=== PATIENT | male | born 1990 | race Caucasian/White ===

== ENCOUNTER 2020-05-26 08:51 | Emergency (ER) | payer OTHER, SELFPAY ==
[2020-05-26 08:55] VITALS: BP 139/72; PULSE 88; RESP 18; TEMP 36.1; O2SAT 100; BMI 25.0
[2020-05-26 09:00] VITALS: O2SAT 100
--- NOTE | 2020-05-26 09:21 | ED.GENADULT ---
HPI - General Adult General Chief complaint: Nausea/Vomiting/Diarrhea Stated complaint: covid testing Time Seen by Provider: 05/26/20 09:02 Source: patient Mode of arrival: ambulatory Limitations: no limitations History of Present Illness HPI narrative: 29 y/o male presenting with acute onset of N/V, body aches, chills and subjective fever that started this morning. He took Motrin for his subjective fever and is starting to feel better. He continues to seen nauseated. No cough, SOB, chest pain, abd pain. Works at a [employer] store. No known exposure to COVID-19. MD complaint: flu-like symptoms Onset (ago): hour(s) (2) Location: back Radiation: non-radiation Severity: moderate Quality: aching Pain Consistency: constant Relieving factors: medication Exacerbating factors: none Associated symptoms: fever/chills, loss of appetite, malaise and nausea/vomiting Treatments prior to arrival: NSAID Related Data Previous Rx's Medication Instructions Recorded ondansetron HCl [Zofran] 4 mg PO Q8H PRN #10 tab 05/26/20 Allergies Allergy/AdvReac Type Severity Reaction Status Date / Time No Known Allergies Allergy Unverified 02/22/20 16:09 [No Known Allergies*] cats and dogs Allergy Unknown Uncoded 07/17/11 00:00 seasonal Allergy Unknown Uncoded 07/17/11 00:00 Review of Systems Review of Systems: Constitutional: + Fever, + Chills ENT/Mouth: No sore throat, No Rhinorrhea, No Swallowing Difficulty Eyes: No Eye Pain, No Swelling, No Redness Cardiovascular: No Chest Pain, No SOB, No Orthopnea, No Edema Respiratory: No Cough, No Sputum, No Wheezing, No dyspnea Gastrointestinal: + Nausea, + Vomiting, No Diarrhea, No abdominal Pain, No Hematochezia, No Melena Genitourinary: No Dysuria, No Urinary Frequency, No Hematuria Musculoskeletal: No joint pain, + Myalgias Skin: No Skin Lesions, No rash Neuro: + Weakness, No Numbness, No Dizziness, + Headache Psych: No Anxiety/Panic, No Depression Heme/Lymph: No Bruising, No Lymphadenopathy PMFSH Past Medical History Medical History (Updated 05/26/20 @ 09:26 by BROOK Castle) Asthma Social History Social History Alcohol intake: never Smoking Status: Never smoker Use of substances other than those prescribed or required for medical reasons: No Advance Directives: No Advance Directives Information Provided: Yes Physical Exam Vital Signs: Vital Signs: Last Vital Signs Temp 97.0 F 05/26/20 08:55 Pulse 88 05/26/20 08:55 Resp 18 05/26/20 08:55 BP 139/72 05/26/20 08:55 Pulse Ox 100 05/26/20 09:00 Body Mass Index 25.0 Appearance: Alert. Oriented X3. No acute distress. Eyes: Pupils equal, round and reactive to light. ENT: Pharynx normal. Neck: Normal inspection. Neck supple. CVS: Normal heart rate and rhythm. Pulses normal. Respiratory: No respiratory distress. Breath sounds normal. Abdomen: Soft and nontender. +BS x4 Skin: Skin warm and dry. Normal skin color. Normal skin turgor. No rashes. Extremities: No lower extremity edema. Neuro: Oriented X 3. No motor deficit. No sensory deficit. Course Course Course Narrative: 29 y/o male presenting with flu like symptoms that started this morning. Works in [employer]. Will test for COVID, Flu and RSV. Patient counseled. Stable for d/c. Medical Decision Making Lab Data Labs: Lab Results 05/26/20 Range/Units 09:18 Coronavirus (PCR) NEGATIVE (Negative) Influenza Type A (PCR) NEGATIVE (Negative) Influenza Type B (PCR) NEGATIVE (Negative) RSV RNA Qual (PCR) NEGATIVE (Negative) Critical Care Time Critical Care Time Critical Care Time: No Discharge Plan Discharge Clinical Impression: Acute viral syndrome Patient Disposition: Home, Self-Care Instructions: Acute Nausea and Vomiting (ED), COVID-19 (Coronavirus Disease 2019) (ED) Additional Instructions: You were tested for COVID-19, Influenza and RSV today. We will call you with the results later today. Continue to take Tylenol and/or Motrin as needed for body aches, fevers. Rest. Stay hydrated. Do not work while you are feeling unwell. Follow up with your doctor this week. If you develop shortness of breath, chest pain, difficulty breathing, abdominal pain, persistent nausea and vomiting and unable to tolerate anything by mouth, come back to the ER for further evaluation. Prescriptions: New ondansetron HCl [Zofran] 4 mg tablet 4 mg PO Q8H PRN (Reason: nausea and vomiting) Qty: 10 RF: 0 Stand Alone Forms: Work/School Release Interventions: ED Discharge Assessment Last Done: 05/26/20 10:02 Discharge Date/Time: 05/26/20 10:03
--- NOTE | 2020-05-26 09:30 | PC.NURSE ---
Patient arrives complaining of nausea/vomiting/bodyaches. Patient is well appearing with regular, even, and nonlabored respirations. Skin PWD. Vitals WNL. Patient swabbed for respiratory panel. Plan for discharge and will call with results.
[2020-05-26 10:06] LABS: Influenza A PCR NEGATIVE (Negative); Influenza B PCR NEGATIVE (Negative); Resp Syncy Virus RNA Qual PCR NEGATIVE (Negative); SARS COV2 PCR INHOUSE NEGATIVE (Negative)
== END 2020-05-26 10:03 | disposition home or self-care (01) ==
PROVIDERS: Physician Assistant; Emergency Provider Emergency Medicine; PCP Physician Assistant
DX: B34.9 Viral infection, unspecified (principal); Z20.828 Contact with and (suspected) exposure to other viral communicable diseases; J45.909 Unspecified asthma, uncomplicated
CPT/HCPCS: 0241U; 99284

== ENCOUNTER 2021-11-04 14:31 | Emergency (ER) | payer OTHER, SELFPAY ==
--- NOTE | ~2021-11-04 | XR_ITS ---
EXAMINATION: XR HAND, RIGHT CLINICAL INFORMATION: Crush injury 3rd-5th digits COMPARISON: None TECHNIQUE: PA, lateral, and oblique views of the right hand. FINDINGS: The bones and soft tissues are normal. No fracture. Alignment is anatomic. Joint spaces are maintained. No erosions or soft tissue calcifications. XR/XR hand RT min 3V IMPRESSION: Normal right hand.
[2021-11-04 16:26] VITALS: BP 128/81; PULSE 80; RESP 18; TEMP 36.4; O2SAT 100; BMI 25.0
--- NOTE | 2021-11-04 16:40 | ED_ITS ---
HPI - Extremity Problem General Chief complaint: Extremity Injury, Upper <BROOK Tavera Last Filed: 11/04/21 18:29> Stated complaint: wri middle finger injury <BROOK Tavera Last Filed: 11/04/21 18:29> Time Seen by Provider: 11/04/21 16:39 <BROOK Tavera Last Filed: 11/04/21 18:29> Source: patient <BROOK Tavera Last Filed: 11/04/21 18:29> Mode of arrival: ambulatory <BROOK Tavera Last Filed: 11/04/21 18:29> History of Present Illness HPI Narrative: 31-year-old male with a past medical history of asthma presenting to the ED complaining of crush injury to right 3rd and 4th digits s/p carrying heavy post at work today around 12pm. States post required 5 adult males to carry, someone dropped too early in finger got crushed between post and wood peg. Reports mild tingling. Denies fever, chills, numbness <BROOK Tavera Last Filed: 11/04/21 18:29> MD Complaint: extremity pain and extremity swelling <BROOK Tavera Last Filed: 11/04/21 18:29> Related Data Home medications: Previous Rx's Medication Instructions Recorded ondansetron HCl 4 mg tablet 4 mg PO Q8H PRN #10 tab 05/26/20 (Zofran) montelukast 10 mg tablet 10 mg PO DAILY #30 tab 10/05/20 <BROOK Tavera Last Filed: 11/04/21 18:29> Allergies/Adverse reactions: Allergies Allergy/AdvReac Type Severity Reaction Status Date / Time No Known Allergies Allergy Verified 11/04/21 16:26 [No Known Allergies*] cats and dogs Allergy Unknown Itchy Eyes Uncoded 11/04/21 16:26 seasonal Allergy Unknown Itchy Eyes Uncoded 11/04/21 16:26 <BROOK Tavera Last Filed: 11/04/21 18:29> Review of Systems Review of Systems: Constitutional: No Fever, No Chills ENT/Mouth: No Ear Pain, No Nasal Congestion, No sore throat, No Rhinorrhea, No Swallowing Difficulty Cardiovascular: No Chest Pain, No SOB Respiratory: No Cough, No Sputum, No Wheezing Gastrointestinal: No Nausea, No Vomiting, No Diarrhea, No Constipation, No Abdominal pain Genitourinary: No Dysuria, No Flank Pain Musculoskeletal: + joint pain, No Myalgias, + Joint Swelling Skin: No Skin Lesions, No rash Neuro: No Weakness, No Numbness, + Paresthesias <BROOK Tavera Last Filed: 11/04/21 18:29> Yes all other systems are reviewed and are negative <BROOK Tavera - Last Filed: 11/04/21 18:29> [facility] Past Medical History Attestation statement: The following information was validated with the patient. <BROOK Tavera Last Filed: 11/04/21 18:29> Medical History: Medical History Asthma <BROOK Tavera Last Filed: 11/04/21 18:29> Social History Social History: Social History Alcohol intake: never Advance Directives: No Advance Directives Information Provided: No <BROOK Tavera Last Filed: 11/04/21 18:29> Physical Exam Vital Signs: Vital Signs: Last Vital Signs Temp 97.5 F 11/04/21 16:26 Pulse 80 11/04/21 16:26 Resp 18 11/04/21 16:26 BP 128/81 11/04/21 16:26 Pulse Ox 100 11/04/21 16:26 BMI result Body Mass Index 25.0 <BROOK Tavera Last Filed: 11/04/21 18:29> Const: General: cooperative, healthy appearing and no acute distress <BROOK Tavera Last Filed: 11/04/21 18:29> Orientation/consciousness: patient oriented x3 <BROOK Tavera Last Filed: 11/04/21 18:29> Limitations: no limitations <BROOK Tavera Last Filed: 11/04/21 18:29> HEENT: Head: Yes normal to inspection and Yes atraumatic <BROOK Tavera Last Filed: 11/04/21 18:29> Ears: hearing grossly normal bilaterally <Carla Poulmaryannt PA - Last Filed: 11/04/21 18:29> General nose exam: Normal external nose present <Carla Lambertmaryannt PA - Last Filed: 11/04/21 18:29> Face and sinus: Yes normal facial exam <Carla Lambertmaryannt PA - Last Filed: 11/04/21 18:29> Eyes: General: appearance normal, both eyes and all related structures <Carla Poulmaryannt, PA - Last Filed: 11/04/21 18:29> EOM: EOMs intact bilaterally <Carla Poulmaryannt, PA - Last Filed: 11/04/21 18:29> Neck: Neck: Yes normal visual inspection and Yes no meningeal signs <Carla Lambertmaryannt, PA - Last Filed: 11/04/21 18:29> Resp: Effort & Inspection: normal respiratory effort and no respiratory distress <Carla Lambertmaryannt PA - Last Filed: 11/04/21 18:29> Cardio: Rate: regular rate <Carla Lambertmaryannt, PA - Last Filed: 11/04/21 18:29> Peripheral pulses: radial pulses present and ulnar radial pulses present <Carla Lambertmaryannt PA - Last Filed: 11/04/21 18:29> Skin: Rashes: no rashes <Carla Lambertmaryannt PA - Last Filed: 11/04/21 18:29> Wounds: no wounds <Carla Lambertmaryannt PA - Last Filed: 11/04/21 18:29> Neuro: General: patient oriented x3, gait normal, tone normal, moves all extremities, no meningeal signs and no focal motor deficits <Carla Lambertmaryannt PA - Last Filed: 11/04/21 18:29> Gait exam (Neuro): Normal gait present <Caral Poulmaryannt PA - Last Filed: 11/04/21 18:29> Motor exam (neuro): 5/5 motor strength present throughout <Carla Poulmaryannt PA - Last Filed: 11/04/21 18:29> Extrem: Other: Right 3rd digit with mild swelling greatest to distal aspect with ecchymosis noted to pulp. +ttp 4th digit with mild ttp. No appreciable deformity. No erythema, crepitus. Sensation intact to light touch to all digits. Neurovascularly intact. Ddvovo-yq-sgiat opposition intact. FROM intact <BROOK Tavera - Last Filed: 11/04/21 18:29> Course Course Course Narrative: XR hand RT min 3V IMPRESSION: Normal right hand. Results discussed with patient including worrisome signs and symptoms and strict return precautions <BROOK Tavera Last Filed: 11/04/21 18:29> MDM - Extremity (Nontraumatic) MDM Narrative Medical decision making narrative: 31-year-old male with a past medical history of asthma presenting to the ED complaining of crush injury to right 3rd and 4th digits s/p carrying heavy post at work today around 12pm. On exam vital signs stable, in ED/nontoxic, ph ysical exam as above. Concern for crush injury/fracture vs sprain. Plan: XR's <BROOK Tavera Last Filed: 11/04/21 18:29> Medical Records Attestation: I reviewed the patient's medical records. <BROOK Tavera Last Filed: 11/04/21 18:29> Lab Data Attestation: I reviewed the patient's lab results. <BROOK Tavera Last Filed: 11/04/21 18:29> Discharge Plan Discharge Clinical Impression: Finger sprain <BROOK Tavera Last Filed: 11/04/21 18:29> Patient Disposition: Home, Self-Care <BROOK Tavera Last Filed: 11/04/21 18:29> Instructions: Crush Injury (ED) <BROOK Tavera Last Filed: 11/04/21 18:29> Additional Instructions: Your x-rays are unremarkable. Ice and elevate your hand. Take Tylenol and Motrin as needed for pain/swelling Follow-up with [facility]. If symptoms persist or worsen, pain becomes unbearable return to any emergency department or call 911 <BROOK Tavera Last Filed: 11/04/21 18:29> Prescriptions: No Action montelukast 10 mg tablet 10 mg PO DAILY Qty: 30 4RF ondansetron HCl [Zofran] 4 mg tablet 4 mg PO Q8H PRN (Reason: nausea and vomiting) Qty: 10 0RF <BROOK Tavera - Last Filed: 11/04/21 18:29> Referrals: [facility] [Outside] <BROOK Tavera - Last Filed: 11/04/21 18:29> Stand Alone Forms: Work/School Release <BROOK Tavera - Last Filed: 11/04/21 18:29> Interventions: ED Discharge Assessment Last Done: 11/04/21 18:48 <BROOK Tavera - Last Filed: 11/04/21 18:29> Discharge Date/Time: 11/04/21 18:49 <BROOK Tavera - Last Filed: 11/04/21 18:29>
== END 2021-11-04 18:49 | disposition home or self-care (01) ==
PROVIDERS: Emergency Provider Emergency Medicine; PCP Physician Assistant
DX: S63.612A Unspecified sprain of right middle finger, initial encounter (principal); S63.614A Unspecified sprain of right ring finger, initial encounter; W23.1XXA Caught, crushed, jammed, or pinched between stationary objects, initial encounter; Y93.89 Activity, other specified; Y92.512 Supermarket, store or market as the place of occurrence of the external cause; Y99.0 Civilian activity done for income or pay
CPT/HCPCS: 73130; 99283

== ENCOUNTER → 2021-11-06 12:46 | Outpatient (BNVA) | payer OTHER, SELFPAY | PROVIDERS: PCP Physician Assistant; Visit Provider Physician Assistant | DX: S62.602A Fracture of unspecified phalanx of right middle finger, initial encounter for closed fracture (principal); W23.0XXA Caught, crushed, jammed, or pinched between moving objects, initial encounter | CPT/HCPCS: 29130; 99203 ==

== ENCOUNTER → 2021-12-04 13:14 | Outpatient (BNVA) | payer OTHER, SELFPAY | PROVIDERS: PCP Physician Assistant; Visit Provider Physician Assistant Medical | DX: S62.602D Fracture of unspecified phalanx of right middle finger, subsequent encounter for fracture with routine healing (principal); W23.0XXD Caught, crushed, jammed, or pinched between moving objects, subsequent encounter | CPT/HCPCS: 99213 ==

== ENCOUNTER 2023-09-15 09:49 | Outpatient (REF) | payer MEDICAID, SELFPAY ==
--- NOTE | ~2023-09-15 | XR_ITS ---
EXAMINATION: XR lumbar spine 2-3V CLINICAL INFORMATION: Reason for Exam PAIN COMPARISON: None TECHNIQUE: 3 views of the lumbar spine FINDINGS: 5 nonrib-bearing lumbar-type vertebral bodies. Vertebral body heights are maintained. Alignment is maintained. Minimal degenerative change and small anterior disc osteophyte complexes. Disc space heights are maintained. Paravertebral soft tissues are unremarkable. XR/XR lumbar spine 2-3V IMPRESSION: Mild spondylosis of the lumbar spine, as above detailed.
== END 2023-09-15 09:50 | disposition home or self-care (01) ==
LOC: HO.HHCX 09:49
PROVIDERS: Visit Provider Nurse Practitioner Family
DX: M54.50 Low back pain, unspecified (principal); G89.29 Other chronic pain
CPT/HCPCS: 72100

== ENCOUNTER 2023-09-15 10:14 | Outpatient (REF) | payer MEDICAID, SELFPAY ==
[2023-09-15 12:21] LABS: Anion Gap 12 (12-20); Blood Urea Nitrogen 19 mg/dL (9-16); C Reactive Protein 0.21 mg/dL (< or = 0.50); Calcium 9.1 mg/dL (8.4-10.2); Carbon Dioxide 27 mmol/L (22-29); Chloride 105 mmol/L (96-108); Cholesterol 150 mg/dL (<200); Estimated Glomerular Filt Rate > 60; Glucose Random 89 mg/dL (60-115); HDL Cholesterol 42 mg/dL (>40); LDL Cholesterol Calculated 93 mg/dL (<100); Potassium 3.8 mmol/L (3.3-5.1); Sodium 140 mmol/L (135-145); Triglycerides 78 mg/dL (<150)
[2023-09-15 12:57] LABS: Erythrocyte Sedimentation Rate 3 MM/HR (0-15)
== END 2023-09-15 10:15 | disposition home or self-care (01) ==
LOC: HO.HHCLNP 10:14
PROVIDERS: Visit Provider Nurse Practitioner Family
DX: Z13.6 Encounter for screening for cardiovascular disorders (principal)
CPT/HCPCS: 36415; 72100; 80048; 80061; 85652; 86140

== ENCOUNTER 2025-01-23 12:10 | Outpatient (REF) | payer OTHER, SELFPAY ==
[2025-01-24 11:39] LABS: Chlamydia pneumoniae PCR Not Detected (Not Detect.); Coronavirus 229E PCR Not Detected (Not Detect.); Coronavirus HKU1 PCR Not Detected (Not Detect.); Coronavirus NL63 PCR Not Detected (Not Detect.); Coronavirus OC43 PCR Not Detected (Not Detect.); RSV PCR Not Detected (Not Detect.); Rhino/Enterovirus PCR Not Detected (Not Detect.)
[2025-01-24 11:40] LABS: Influenza A H1 PCR Not Detected (Not Detect.); Influenza A H1-2009 PCR Not Detected (Not Detect.); Influenza A H3 PCR Not Detected (Not Detect.); SARS-CoV-2 PCR Detected (Not Detect.)
== END 2025-01-23 12:11 | disposition home or self-care (01) ==
LOC: HO.LAB 12:10
PROVIDERS: PCP Physician Assistant; Visit Provider Physician Assistant
DX: J06.9 Acute upper respiratory infection, unspecified (principal); H65.91 Unspecified nonsuppurative otitis media, right ear; R05.9 Cough, unspecified
CPT/HCPCS: 87633; 99212

== ENCOUNTER 2025-01-23 12:10 | Outpatient (AMB) | payer OTHER, SELFPAY ==
[2025-01-23 12:46] VITALS: BP 108/70; PULSE 92; TEMP 36.8; O2SAT 97; BMI 29.9
--- NOTE | 2025-01-23 12:46 | MHC.OFFWIV ---
Intake Vital Signs 01/23/25 12:46 Height 5 ft 8 in Weight 196 lb 8 oz BMI 29.9 BP 108/70 Blood Pressure Location Rt brachial Position Sitting Pulse 92 Pulse Source Pulse Oximeter Temp 98.3 F Temp Source Oral Pulse Oximetry (%) 97 Oxygen Delivery Method Room Air Intake Visit Reasons: EP-chest congestion, heat flashes Patient Tobacco Use Status: Never used Tobacco Food Service Specialist Required: No Allergies No Known Allergies (No Known Allergies*) Allergy (Verified 01/23/25 12:50) cats and dogs Allergy (Unknown, Uncoded 11/04/21 16:26) Itchy Eyes seasonal Allergy (Unknown, Uncoded 11/04/21 16:26) Itchy Eyes HPI HPI Comments History of Present Illness Details History - The patient is a 34-year-old male presenting with symptoms of a chest cold and ear pain. - The chest cold began on 3 days ago, getting worse, including difficulty breathing and wheezing. - The patient has a history of asthma and uses an albuterol inhaler every four to six hours as needed, which provides relief. - The patient reports intermittent ear pain, which worsened after water exposure in the shower. - The patient experienced on-and-off fevers over the past couple of days and attempted to manage symptoms with Robitussin, which was ineffective after Wednesday. - Examination revealed an infection in the right ear, suspected to be unrelated to the viral symptoms, possibly due to water exposure. Physical Exam General: Cooperative, healthy appearing, comfortable and no acute distress Orientation/consciousness: Patient oriented x3 Limitations: No limitations Head: Normal to inspection Ears: Hearing grossly normal bilaterally, external ears normal, right TM with copious purulence, blood and loss of landmarks Nose: Normal external nose present, Normal nares present and No nasal discharge present Face and sinus: Normal facial exam and Yes sinuses nontender Mouth: Normal oral and palatal mucosa present and moist mucous membranes Throat: Yes tonsils normal, Yes uvula midline. Posterior oropharynx erythema, no exudates Eyes: Appearance normal, both eyes and all related structures Neck: Normal visual inspection, full ROM Respiratory: Clear to auscultation bilaterally. Normal respiratory effort, able to speak in complete sentences, Actively coughing, no respiratory distress, not tachypneic, no tripod positioning and no use of accessory muscles Cardiovascular: Regular rate and rhythm. Normal S1 and S2 Skin: No rashes or lesions noted Neuro: Patient oriented x3 Extremities: Normal to inspection and Yes no clubbing, cyanosis or edema PFSH Medical History Asthma Social History Housing: House Alcohol intake: never Patient Tobacco Use Status: Never used Tobacco service: No Current occupational status: employed Review of Systems Const All systems reviewed & are unremarkable except as noted in HPI and below Physical Exam Vital Signs: Last Vital Signs Temp 98.3 F 01/23/25 12:46 Pulse 92 01/23/25 12:46 BP 108/70 01/23/25 12:46 Pulse Ox 97 01/23/25 12:46 Oxygen Delivery Method Room Air 01/23/25 12:46 BMI result Body Mass Index 29.9 Assessment & Plan Assessment & Plan (1) URI, acute: Code(s): J06.9 - Acute upper respiratory infection, unspecified Plan: Plan - Prescribe amoxicillin for the right ear infection, suspected to be bacterial. - Conducted a full viral panel to test for multiple viruses, with results expected by the next morning. - Prescribe a cough suppressant for nighttime use to aid sleep. - Advised continued use of albuterol inhaler as needed for asthma symptoms. - Decongestant can be helpful. - Instructed patient to seek further medical attention if shortness of breath worsens. Patient was informed and verbally consented to the use of an ambient scribe for clinic note documentation during this visit (2) Right otitis media with effusion: Code(s): H65.91 - Unspecified nonsuppurative otitis media, right ear Plan: as above Orders: Orders Resp Pathogen Panel - [facility] Today J06.9 - Acute upper respiratory infection, unspecified Medications: New amoxicillin 875 mg PO Q12H 10 tabs 0RF benzonatate 200 mg PO BEDTIME PRN 10 caps 0RF cough Coding Level of Care Code Est Pt Level 4 (28872) Diagnoses URI, acute J06.9 Right otitis media with effusion H65.91
--- OUTSIDE RECORDS SUMMARY | 2025-01-23 13:31 | XMS_ITS | Clinical Summary ---
Author Organization [employer] Address [address] [place] [address] Care Team Providers Care Value Stream Coach Name Role Phone Radha Spaulding ERIK Primary Care Provider Allergies No known active allergies Medications ibuprofen 800 MG tablet Take 800 mg by mouth every 6 (six) hours if needed for mild pain. Active montelukast (Singulair) 10 MG tablet Take 10 mg by mouth at bedtime. Active albuterol 108 (90 Base) MCG/ACT inhaler Inhale 1-2 puffs every 6 (six) hours if needed for wheezing or shortness of breath. Active Active Problems Problem Noted Date Diagnosed Date Chronic low back pain without sciatica Assessment & Plan (09/15/2023 9:56 AM EDT): Likely msk strain, feels chiropractor helpful Due to young onset of sig symptoms and duration of pain will x-ray, inflammatory markers also ordered Encouraged walking, correct ergonomics and physical therapy Other hemorrhoids 09/15/2023 Assessment & Plan (09/15/2023 9:55 AM EDT): Hx consistent with hemorrhoids, encouraged hydration, fiber and exercise. If bleeding or pain occurs rtc, Anticipatory management reviewed Screening for cardiovascular condition Assessment & Plan (09/15/2023 9:57 AM EDT): Low cad risk from lifestyle hx standpoint, labs ordered Immunizations Immunization Administration Dates Next Due Influenza injectable quadriv alent IIV4 with preservative 02/28/2016 Influenza injectable quadrivalent preservative f ree 04/28/2019 Tdap 01/04/2018 Family History Medical History Relation Name Comments Thyroid disease Mother Relation Name Status Comments Mother Alive Social History Tobacco Use Types Packs/Day Years Used Date Smoking Tobacco: Never Alcohol Use Standard Drinks/Week Comments Never 0 (1 standard drink = 0.6 oz pur e alcohol) Depression Answer Date Recorded Patient Health Questionnaire-9 Score 0 09/15/2023 Patient Health Questionnaire-9 Score 0 09/15/2023 Last PHQ-9: Questionnaire Data Not on file 0 09/15/2023 Housing Stability Answer Date Recorded What is your housing situation today? I have rina dodson 09/08/[address] you li ve. Do you have problems with any of the following? None of the above 09/08/2023 Food Insecurity Answer Date Recorded Within the past 12 months, y ou worried that your food would run out before you got money to buy more: Sometimes True 2023 Within the past 12 months,th e food you bought just didn't last and you didn't have enough money to get more: Sometimes True 09/08/2023 Transportation Answer Date Recorded In the past 12 months, has l ack of transportation kept you from medical appts, meetings, work or from getting things needed for daily living? No 09/08/2023 Utilities Answer Date Recorded In the past 12 months, has t he electric, gas, oil or water company threatened to shut off services in your home? 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 Not on file Not on file Not on file Last Filed Vital Signs Vital Sign Reading Time Taken Comments Blood Pressure 126/77 09/15/2023 9:00 AM EDT Pulse 79 09/15/2023 9:00 AM EDT Temperature - - Respiratory Rate 14 09/15/2023 9:00 AM EDT Oxygen Saturation 98% 09/15/2023 9:00 AM EDT Inhaled Oxygen Concentration - - Weight 81.6 kg (179 lb 12.8 oz) 09/15/2023 9:00 AM EDT Height 172.7 cm (5' 8 ) 09/15/2023 9:00 AM EDT Body Mass Index 27.34 09/15/2023 9:00 AM EDT Plan of Treatment Health Maintenance Due Date Last Done Comments HIV Screening 1992 Disability Screening 1992 Alcohol/Substance Use Screening 2004 Family Planning (PISQ) 2007 HPV Vaccines (1 - Male 3-dos e series) 2007 Hepatitis C Screening 2010 Hepatitis B Vaccines (1 of 3 - 19+ 3-dose series) 2011 COVID-19 Vaccine (2023-2 5 season) 2024 10/23/2020, 09/25/2020 SDOH Screening 09/07/2024 09/08/2023 Depression Screening 09/14/2024 09/15/2023, 09/15/2023 Tobacco Screening 09/14/2024 09/15/2023 Influenza Vaccine (#1) 2025 9, 02/28/2016 DTaP/Tdap/Td Vaccines (2 - T d or Tdap) 01/05/2028 01/04/2018 Zoster Vaccines (1 of 2) 2042 RSV Patients and Patients Aged 60 years or older (1 - 1-dose 75+ series) 2067 HIB Vaccines Aged Out No longer eligi ble based on patient's age to complete this topic Hepatitis A Vaccines Aged Out No long er eligible based on patient's age to complete this topic IPV Vaccines Aged Out No longer eligi ble based on patient's age to complete this topic Meningococcal B Vaccine Aged Out No l onger eligible based on patient's age to complete this topic Meningococcal Vaccine Aged Out No jeniffer delmy eligible based on patient's age to complete this topic Pneumococcal Vaccine: Pediatrics (0 to 5 Years) and At-Risk Patients (6 to 49) Years Aged Out No longer eligible b ased on patient's age to complete this topic RSV under 20 months Aged Out No longe r eligible based on patient's age to complete this topic Rotavirus Vaccines Aged Out No longer eligible based on patient's age to complete this topic Insurance [facility] C3 Care Teams Value Stream Coach Relationship Specialty Start Date End Date Radha Spaulding NP [address] [place] [id number] PCP - General Family Medicine 09/15/23
== END 2025-01-23 13:15 | disposition home or self-care (01) ==
PROVIDERS: PCP Physician Assistant; Visit Provider Physician Assistant
DX: J06.9 Acute upper respiratory infection, unspecified (principal); H65.91 Unspecified nonsuppurative otitis media, right ear